=== PATIENT | male | born 1960 | race Caucasian/White ===

== ENCOUNTER 2021-01-02 10:07 | Emergency (ER) | payer OTHER ==
--- NOTE | 2021-01-02 12:41 | ER ---
Nurse's Notes [facility] Name: Anant Jensen Age: 60 yrs Sex: Male : 1960 Arrival Date: 01/02/2021 Time: 10:10 Bed 7 Private MD: Diagnosis: Allergic contact dermatitis Presentation: 01/02 10:14 Chief complaint: Seen at [place] on 12/23 for poison zhang, s/o left periorbital swelling hb and rash is spreading today. Coronavirus screen: At this time, the client does not indicate any symptoms associated with coronavirus-19. Ebola Screen: No symptoms or risks identified at this time. Initial Sepsis Screen: Does the patient meet any 2 criteria? No. Patient's initial sepsis screen is negative. Does the patient have a suspected source of infection? No. Patient's initial sepsis screen is negative. Risk Assessment: Do you want to hurt yourself or someone else? Patient reports no desire to harm self or others. Onset of symptoms was December 23, 2020. 10:14 Method Of Arrival: Ambulatory hb 10:14 Acuity: KENRICK 4 hb Triage Assessment: 11:45 General: Appears in no apparent distress. uncomfortable, Behavior is calm, cooperative, bp appropriate for age. Pain: Denies pain. EENT: Reports R DAVID-ORBITAL EDEMA. Neuro: No deficits noted. Cardiovascular: No deficits noted. Respiratory: No deficits noted. GI: No signs and/or symptoms were reported involving the gastrointestinal system. : No signs and/or symptoms were reported regarding the genitourinary system. Derm: No deficits noted. Musculoskeletal: No deficits noted. Historical: - Allergies: 10:16 No Known Allergies; hb - Immunization history:: Adult Immunizations up to date. - Family history:: not pertinent. - Social history:: Smoking status: Patient denies any tobacco usage or history of. Screenin:48 Abuse screen: Denies threats or abuse. Nutritional screening: No deficits noted. tw2 Tuberculosis screening: No symptoms or risk factors identified. Fall Risk None identified. Assessment: 11:45 General: SEE TRIAGE NOTE. bp 12:59 Reassessment: PT D/C HOME AMBULATORY WITH FAMILY, DX WITH CONTACT DERMATITIS. bp Vital Signs: 10:14 BP 138 / 85; Pulse 73; Resp 16; Temp 98.3; Pulse Ox 100% on R/A; Pain 0/10; hb 12:30 BP 137 / 79; Pulse 75; Resp 16; Temp 98.5; Pulse Ox 99% ; bp ED Course: 10:10 Patient arrived in ED. as 10:15 Triage completed. hb 10:16 Arm band placed on. hb 11:42 Bed in low position. Call light in reach. Pulse ox on. NIBP on. tw2 11:44 Tad Kaye MD is Attending Physician. caty 11:45 No provider procedures requiring assistance completed. Patient did not have IV access bp during this emergency room visit. 11:48 Dagmar Jensen, RN is Primary Nurse. tw2 12:40 Cierra Gonzalez MD is Referral Physician. caty Administered Medications: 12:45 Drug: Pepcid (famotidine) 40 mg Route: PO; bp 12:56 Follow up: Response: No adverse reaction bp 12:45 Drug: Atarax (hydrOXYzine) 50 mg Route: PO; bp 12:56 Follow up: Response: No adverse reaction bp 12:45 Drug: Doxycycline 200 mg Route: PO; bp 12:56 Follow up: Response: No adverse reaction bp 12:45 Drug: predniSONE 40 mg Route: PO; bp 12:56 Follow up: Response: No adverse reaction bp Outcome: 12:40 Discharge ordered by . caty 12:58 Discharged to home ambulatory, with family. bp 12:58 Condition: stable 12:58 Discharge instructions given to patient, Instructed on discharge instructions, follow up and referral plans. medication usage, Demonstrated understanding of instructions, follow-up care, medications, Prescriptions given X 4. 13:00 Patient left the ED. bp Signatures: Tad Kaye MD MD cha Martinez, Amelia as Keri Medrano, RN RN hb Dagmar Jensen, RN RN tw2 Quinn Dumont RN RN bp
--- NOTE | 2021-01-02 12:41 | EDPHYS ---
Physician Documentation [facility] Name: Anant Jensen Age: 60 yrs Sex: Male : 1960 Arrival Date: 01/02/2021 Time: 10:10 Bed 7 Private MD: ED Physician Tad Kaye HPI: 01/02 12:29 This 60 yrs old Male presents to ER via Ambulatory with complaints of Eye caty Swelling. 12:29 to the left eye. Onset: The symptoms/episode began/occurred 2 day(s) ago. Duration: the caty symptoms are continuous. Aggravated by nothing. Alleviated by nothing. Associated signs and symptoms: Pertinent positives: None. Pertinent negatives: None. Severity of symptoms: At their worst the symptoms were mild in the emergency department the symptoms are unchanged. The patient has experienced a previous episode, last week. Historical: - Allergies: 10:16 No Known Allergies; hb - Immunization history:: Adult Immunizations up to date. - Family history:: not pertinent. - Social history:: Smoking status: Patient denies any tobacco usage or history of. ROS: 12:29 Constitutional: Negative for fever, chills, and weight loss, Eyes: Negative for injury, caty pain, redness, and discharge, ENT: Negative for injury, pain, and discharge, Neck: Negative for injury, pain, and swelling, Cardiovascular: Negative for chest pain, palpitations, and edema, Respiratory: Negative for shortness of breath, cough, wheezing, and pleuritic chest pain, Abdomen/GI: Negative for abdominal pain, nausea, vomiting, diarrhea, and constipation, Back: Negative for injury and pain, : Negative for injury, bleeding, discharge, and swelling, MS/Extremity: Negative for injury and deformity, Skin: Negative for injury, rash, and discoloration, Neuro: Negative for headache, weakness, numbness, tingling, and seizure, Psych: Negative for depression, anxiety, suicide ideation, homicidal ideation, and hallucinations, Allergy/Immunology: Negative for hives, rash, and allergies, Endocrine: Negative for neck swelling, polydipsia, polyuria, polyphagia, and marked weight changes, Hematologic/Lymphatic: Negative for swollen nodes, abnormal bleeding, and unusual bruising. 12:29 Constitutional: Negative for body aches, chills, fatigue, fever, malaise, poor PO intake, weight loss. 12:29 Eyes: Positive for swelling, of the left lower eyelid. Exam: 12:29 Constitutional: This is a well developed, well nourished patient who is awake, alert, caty and in no acute distress. Eyes: Pupils equal round and reactive to light, extra-ocular motions intact. Lids and lashes normal. Conjunctiva and sclera are non-icteric and not injected. Cornea within normal limits. Periorbital areas with no swelling, redness, or edema. ENT: Nares patent. No nasal discharge, no septal abnormalities noted. Tympanic membranes are normal and external auditory canals are clear. Oropharynx with no redness, swelling, or masses, exudates, or evidence of obstruction, uvula midline. Mucous membranes moist. Neck: Trachea midline, no thyromegaly or masses palpated, and no cervical lymphadenopathy. Supple, full range of motion without nuchal rigidity, or vertebral point tenderness. No Meningismus. Chest/axilla: Normal chest wall appearance and motion. Nontender with no deformity. No lesions are appreciated. Cardiovascular: Regular rate and rhythm with a normal S1 and S2. No gallops, murmurs, or rubs. Normal PMI, no JVD. No pulse deficits. Respiratory: Lungs have equal breath sounds bilaterally, clear to auscultation and percussion. No rales, rhonchi or wheezes noted. No increased work of breathing, no retractions or nasal flaring. Abdomen/GI: Soft, non-tender, with normal bowel sounds. No distension or tympany. No guarding or rebound. No evidence of tenderness throughout. Back: No spinal tenderness. No costovertebral tenderness. Full range of motion. Male : Normal genitalia with no discharge or lesions. Skin: Warm, dry with normal turgor. Normal color with no rashes, no lesions, and no evidence of cellulitis. MS/ Extremity: Pulses equal, no cyanosis. Neurovascular intact. Full, normal range of motion. Neuro: Awake and alert, GCS 15, oriented to person, place, time, and situation. Cranial nerves II-XII grossly intact. Motor strength 5/5 in all extremities. Sensory grossly intact. Cerebellar exam normal. Normal gait. Psych: Awake, alert, with orientation to person, place and time. Behavior, mood, and affect are within normal limits. 12:29 Head/face: Noted is swelling, that is mild, of the left cheek. Vital Signs: 10:14 BP 138 / 85; Pulse 73; Resp 16; Temp 98.3; Pulse Ox 100% on R/A; Pain 0/10; hb 12:30 BP 137 / 79; Pulse 75; Resp 16; Temp 98.5; Pulse Ox 99% ; bp MDM: 11:44 Patient medically screened. [facility] 12:29 Data reviewed: vital signs, nurses notes. Data interpreted: electronic device monitor: not caty applicable for this patient encounter. rate is 73 beats/min, rhythm is regular, Pulse oximetry: on room air is 100 %. Test interpretation: by ED physician or midlevel provider:. Counseling: I had a detailed discussion with the patient and/or guardian regarding: the historical points, exam findings, and any diagnostic results supporting the discharge/admit diagnosis, the need for outpatient follow up, for definitive care, a family practitioner. 01/02 12:28 Order name: Ice pack; Complete Time: 12:55 caty Administered Medications: 12:45 Drug: Pepcid (famotidine) 40 mg Route: PO; bp 12:56 Follow up: Response: No adverse reaction bp 12:45 Drug: Atarax (hydrOXYzine) 50 mg Route: PO; bp 12:56 Follow up: Response: No adverse reaction bp 12:45 Drug: Doxycycline 200 mg Route: PO; bp 12:56 Follow up: Response: No adverse reaction bp 12:45 Drug: predniSONE 40 mg Route: PO; bp 12:56 Follow up: Response: No adverse reaction bp Disposition: 01/02/21 12:40 Discharged to Home. Impression: Allergic contact dermatitis. - Condition is Stable. - Discharge Instructions: Contact Dermatitis, Contact Dermatitis, [id number]. - Prescriptions for Hydroxyzine HCl 50 mg Oral Tablet - take 1 tablet by ORAL route every 8 hours As needed; 20 tablet. Pepcid 20 mg Oral Tablet - take 1 tablet by ORAL route every 12 hours for 10 days; 20 tablet. Doxycycline Hyclate 100 mg Oral Tablet - take 1 tablet by ORAL route every 12 hours; 20 tablet. Prednisone 20 mg Oral Tablet - take 2 tablet by ORAL route once daily for 5 days; 10 tablet. - Medication Reconciliation Form, Thank You Letter, Antibiotic Education, Prescription Opioid Use form. - Follow up: Private Physician; When: 2 - 3 days; Reason: Recheck today's complaints, Continuance of care, Re-evaluation by your physician. Follow up: Cierra Gonzalez; When: 2 - 3 days; Reason: Recheck today's complaints, Re-evaluation by your physician. - Problem is new. - Symptoms have improved. Signatures: Tad Kaye MD MD cha Baxter, Heather, RN RN Quinn Zhu RN RN bp Corrections: (The following items were deleted from the chart) 13:00 12:40 01/02/2021 12:40 Discharged to Home. Impression: Allergic contact dermatitis. bp Condition is Stable. Discharge Instructions: Contact Dermatitis, Contact Dermatitis, [id number]. Prescriptions for Hydroxyzine HCl 50 mg Oral Tablet - take 1 tablet by ORAL route every 8 hours As needed; 20 tablet, Pepcid 20 mg Oral Tablet - take 1 tablet by ORAL route every 12 hours for 10 days; 20 tablet, Doxycycline Hyclate 100 mg Oral Tablet - take 1 tablet by ORAL route every 12 hours; 20 tablet, Prednisone 20 mg Oral Tablet - take 2 tablet by ORAL route once daily for 5 days; 10 tablet. and Forms are Medication Reconciliation Form, Thank You Letter, Antibiotic Education, Prescription Opioid Use. Follow up: Private Physician; When: 2 - 3 days; Reason: Recheck today's complaints, Continuance of care, Re-evaluation by your physician. Follow up: Cierra Gonzalez; When: 2 - 3 days; Reason: Recheck today's complaints, Re-evaluation by your physician. Problem is new. Symptoms have improved. caty
[2021-01-02] MEDS ORDERED: predniSONE 20 MG TAB ONE (13:06)
[2021-01-02] MEDS ORDERED: hydrOXYzine HCL 25 MG TAB ONE (13:06)
[2021-01-02] MEDS ORDERED: FAMOTIDINE 20 MG TAB ONE (13:06)
[2021-01-02] MEDS ORDERED: DOXYCYCLINE 100 MG CAP PO ONE (13:07)
[2021-01-02 13:10] VITALS: BP 137/79; TEMP 98.5; O2SAT 99
== END 2021-01-02 13:00 | disposition home or self-care (01) ==
LOC: ER 10:07
DX: L23.9 Allergic contact dermatitis, unspecified cause (principal)
CPT/HCPCS: 99283; J7512